=== PATIENT | male | born 1985 | race Asian ===

== ENCOUNTER 2023-01-29 20:53 | Emergency (ER) | payer OTHER ==
[~2023-01-29] VITALS: Ht 175.3 cm; Wt 95.3 kg
--- NOTE | 2023-01-29 20:58 | NUR ---
PT [facility] BLS. TAKEN TO BED 7
[2023-01-29 21:00] VITALS: BP 146/93
--- NOTE | 2023-01-29 21:07 | NUR ---
Dr. Herbert examining patient.
--- NOTE | 2023-01-29 21:07 | NUR ---
27 Y/O M presents with a fall backwards when ice skating. pt states 0/10 pain and doesnt remember how he fell. pt denied any nvd and is a&ox4. pt states he has some dizziness. Pt speaks mandarian and the ssas developer was used for pt. [employer] Pipe Layer number [id number] [facility]. [facility]-pt denies NKA
--- NOTE | 2023-01-29 21:22 | NUR ---
[employer] school english teacher used [id number] [facility]
--- NOTE | 2023-01-29 21:45 | NUR ---
pt demonstrated steady gait by walking to the restroom and back to room. pt denies any pain at the moment
--- NOTE | 2023-01-29 21:50 | NUR ---
Patient discharged with v/s stable. Written and verbal after care instructions given and explained. Patient verbalized understanding. Ambulatory with steady gait. All questions addressed prior to discharge. Advised to follow up with PMD.
--- NOTE | 2023-01-29 21:51 | NUR ---
The patient's care was reviewed and supervised by Geno Gloria RN.
== END 2023-01-29 21:50 | disposition home or self-care (01) ==
LOC: MED 20:53
DX: S06.0XAA Concussion with loss of consciousness status unknown, initial encounter (principal); V00.131A Fall from skateboard, initial encounter; Y93.21 Activity, ice skating; Y92.330 Ice skating rink (indoor) (outdoor) as the place of occurrence of the external cause; Y99.8 Other external cause status
CPT/HCPCS: 99283